=== PATIENT | female | born 1955 | race Caucasian/White ===

== ENCOUNTER 2016-10-25 13:18 | Emergency (ER) | payer BC ==
[~2016-10-25] VITALS: Ht 167.6 cm; Wt 77.2 kg
[~2016-10-25 13:18] MED LIST: BUSPAR; FLUO40CA9 PO; LEVO150T PO; TRIA1TAB3 PO; omprazole
[2016-10-25 13:27] VITALS: BP 140/86
--- NOTE | 2016-10-25 13:36 | PHYS DOC ---
General Chief Complaint: LACERATION/AVULSION Stated Complaint: THUMB LAC Time Seen by MD: 13:30 Source: patient Exam Limitations: no limitations Problems: History of Present Illness Initial Comments Pt is 61/F to ED c/o left thumb laceration. 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 Bled profusely initially, mostly resolved with direct pressure on ED arrival. Pain controlled, no numbness/tingling/ radiating symptoms. Pt unable to extend thumb at IP joint, obvious tendon disruption. Td status uncertain, possibly within past 10 years will update today. Onset: just prior to arrival Severity: severe Pain/Injury Location: left thumb Method of Injury: incised Modifying Factors: worse with jarring, worse with movement Allergies: Coded Allergies: Penicillins (Verified Allergy, Intermediate, Rash, 10/25/16) Sulfa (Sulfonamide Antibiotics) (Verified Allergy, Intermediate, Rash, ) Past Medical History Medical History: other (thyroid CA s/p thyroidectomy, GERD, depression, anxiety ) Surgical History: other (thyroidectomy) Social History Smoker: non-smoker Alcohol: none Drugs: none Review of Systems Constitutional: denies chills, denies fever, denies malaise Respiratory: denies cough, denies shortness of breath Cardiovascular: denies chest pain, denies palpitations Gastrointestinal: denies abdominal pain, denies nausea, denies vomiting Musculoskeletal: see HPI Skin: see HPI Psychiatric/Neurological: see HPI Physical Exam General Appearance: WD/WN, no apparent distress Neck: non-tender, supple Cardiovascular/Respiratory: normal peripheral pulses, no respiratory distress Wrist: normal inspection, non-tender, no evidence of injury, normal ROM Hand: laceration (dorsal aspect proximal phalanx left thumb with 1cm deep linear clean laceration no FB noted no pulsatile bleeding.), limited ROM, soft tissue tenderness Neurologic/Tendon: normal sensation, tendon function deficit (left thumb extensor) Psychiatric: alert, oriented x 3 Skin: warm/dry (L thumb as above) Laceration/Wound Repair Laceration/Wound Repair : Wound Location: upper extremity (dorsal aspect proximal phalanx left thumb) Wound's Depth, Shape: into muscle, linear Wound Length (cm): 1 Wound Explored: clean Irrigated w/ Saline (ccs): 150 Betadine Prep?: Yes (soaked in betacept initially) Anesthesia: 1% Lidocaine Volume Anesthetic (ccs): 3 Wound Debrided: minimal Wound Repaired With: sutures Suture Size/Type: 4:0, nylon Number of Sutures: 3 Sterile Dressing Applied?: Yes Splint Applied?: Yes Type of Splint Applied: metal finger splint Progress Informed consent left thumb laceration repair. Sterile technique. Analgesia with 2% lidocaine, wound edges approximated with 3 4-0 ethilon sutures. Tolerated well no complications, sterile dressing/metal finger splint applied by ED staff. NV intact after splint placed checked by me. Orders, Labs, Meds 1335: Staff requested to page hand surgeon. 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 Awaiting return call. 1414: Clarita reports that Dr Altamirano instructs wound closure/splinting, pt to f/ u with him in clinic Wednesday. She is to call [phone] tomorrow morning to schedule. Departure Time of Disposition: 15:02 Disposition: 01 HOME, SELF-CARE Diagnosis: left thumb extensor tendon rupture, thumb lacerati Condition: STABLE Patient Instructions: Tendon Injury, VIS, Tetanus, Diphtheria, and Pertussis ( Tdap) - CDC Additional Instructions: Keep covered with sterile dressing until completely healed. Keep wound dry for 48 hours. Change dressing twice daily. Rx: clindamycin (infection prevention), norco 5mg #14 Take meds with food. You will need to follow up with hand surgeon, Dr Altamirano. Call his office tomorrow morning to schedule Wednesday clinic appointment: [phone] Return to ED with new or changing symptoms. KAYLEN PEARSON DO Oct 25, 2016 13:36
[2016-10-25] MEDS ORDERED: LIDOCAINE 2% 20 ML VIAL. IJ ONE (14:30)
[2016-10-25] MEDS ORDERED: CLIN300C86 PO (15:02)
[2016-10-25] MEDS ORDERED: HYDR-971 PO (15:02)
[2016-10-25] MEDS ORDERED: CLINDAMYCIN HCL 150 MG CAPSULE PO ONE (15:30)
== END 2016-10-25 15:21 | disposition home or self-care (01) ==
LOC: ER 13:18
DX: S61.012A Laceration without foreign body of left thumb without damage to nail, initial encounter (principal); K21.9 Gastro-esophageal reflux disease without esophagitis; Z88.0 Allergy status to penicillin; Z88.2 Allergy status to sulfonamides; W45.8XXA Other foreign body or object entering through skin, initial encounter; Y93.89 Activity, other specified; Y99.8 Other external cause status; Y92.89 Other specified places as the place of occurrence of the external cause
CPT/HCPCS: 12001; 99283-25; J2001

== ENCOUNTER → 2017-03-16 | Outpatient (CLI) | payer BC ==
[~2017-03-16] MED LIST changes: +CLIN300C8 PO; +HYDR-971 PO
--- NOTE | 2017-03-16 09:59 | RAD ---
DATE: 03/16/2017 EXAM: MAMMO DELTA SCREENING BILATERAL HISTORY: Screening COMPARISON: 11/07/2014 This study was interpreted with the benefit of Computerized Aided Detection (CAD). FINDINGS: Breast Density: HETERO The breast parenchyma Is heterogeneiously dense, which could reduce sensitivity of mammography. Breast parenchyma level C. No dominant mass or suspect group calcifications is seen. There has not been a significant change in the appearance of the breasts when compared to the previous exam IMPRESSION: Benign findings BI-RADS CATEGORY: 2 BENIGN FINDING(S) RECOMMENDED FOLLOW-UP: 12M 12 MONTH FOLLOW-UP PQRS compliance statement: Patient information was entered into a reminder system with a target due date 03/16/2018 for the next mammogram. Mammography is a sensitive method for finding small breast cancers, but it does not detect them all and is not a substitute for careful clinical examination. A negative mammogram does not negate a clinically suspicious finding and should not result in delay in biopsying a clinically suspicious abnormality. "Our facility is accredited by the [employer] Mammography Program."
== END | disposition home or self-care (01) ==
LOC: MAMMO 07:59
PROVIDERS: ATTEND Internal Medicine
DX: Z12.31 Encounter for screening mammogram for malignant neoplasm of breast (principal)
CPT/HCPCS: 77063; G0202; 77067

== ENCOUNTER → 2017-10-21 | Outpatient (CLI) | payer BC ==
[2017-10-25 14:12] LABS: ALBUM 4.1 g/dL (2.9-4.4); ALPHA 1 0.3 g/dL (0.0-0.4); ALPHA 2 1.2 g/dL (0.4-1.0); BETA 1.2 g/dL (0.7-1.3); GAMMA 0.8 g/dL (0.4-1.8); PROTEIN TOTAL 7.5 g/dL (6.0-8.5); SPEP AG RATIO 1.2 (0.7-1.7)
[2017-10-26 15:11] LABS: ALPHA 1 UR 6.8 % (.); ALPHA 2 UR 18.5 % (.); BETA UR 29.3 % (.); GAMMA UR 27.4 % (.); PROTEIN 24 UR 89 mg/24 hr (30-150); PROTEIN UR 9.9 mg/dL (Not Estab.)
== END | disposition home or self-care (01) ==
LOC: LAB 10:20
PROVIDERS: ATTEND Orthopaedic Surgery Orthopaedic Surgery of the Spine
DX: R93.7 Abnormal findings on diagnostic imaging of other parts of musculoskeletal system (principal)
CPT/HCPCS: 36415; 84165; 84166

== ENCOUNTER 2019-09-21 05:10 | Emergency (ER) | payer BC ==
[~2019-09-21] VITALS: Ht 167.6 cm; Wt 66.4 kg
[~2019-09-21 05:10] MED LIST changes: +HYDR-3165 PO; -HYDR-971 PO
--- NOTE | 2019-09-21 05:20 | PHYS DOC ---
Past History Past Medical History: Cancer, CVA, Hypothyroid, Other Past Medical History Pulmonary Embolism (BUSTER HINTON MD) Past Surgical History: Other Past Surgical History Port- Veinous (BUSTER HINTON MD) Smoking: Non-smoker Alcohol Use: None Drug Use: None (BUSTER HINTON MD) Adult General Chief Complaint Chief Complaint: - Non-Verbal HPI HPI Patient is a 64 year old female who presents with hx of mental status change. Pt. reportedly not her self since discharge from on Sat. after tx for PE. Pt. was walking and verbal last night. This morning pt not verbal, or only responded with word 'What' to questions. and seemed very weak on Rt side. Pt. has hx of adenocarcinoma with no origin. (BUSTER HINTON MD) Review of Systems Review of Systems Review of systems Limited- due to patient's mental status on arrival (BUSTER HINTON MD) Family History Family History Not currently available (BUSTER HINTON MD) Current Medications Current Medications See nursing for home meds (BUSTER HINTON MD) Allergies Allergies Allergies Coded Allergies Type Severity Reaction Last Updated Verified Penicillins Allergy Intermediate Rash 10/25/16 Yes Sulfa (Sulfonamide Antibiotics) Allergy Intermediate Rash 10/25/16 Yes (BUSTER HINTON MD) Physical Exam Physical Exam Constitutional:, no acute distress, chronically ill in appearance. [] HENT: Normocephalic, atraumatic, bilateral external ears normal, oropharynx moist, no oral exudates, nose normal. [] Eyes: PERRLA, EOMI, conjunctiva normal, no discharge. [] Neck: Normal range of motion, no tenderness, supple, no stridor. [] Cardiovascular: Tachycardia Heart rate ill regular regular rhythm, no murmur []PMI to the left. Monitor shows episodes of irregular rhythm suspect A. fib with rapid ventricular response. Lungs & Thorax: Bilateral breath sounds equal apex with scattered wheezes auscultation [] Abdomen: Bowel sounds normal, soft, no tenderness, no masses, no pulsatile masses. Incontinent of urine Skin: Warm, dry, no erythema, no rash. Or turgor Back: No tenderness, no CVA tenderness. [] Extremities: No tenderness, no cyanosis, no clubbing, ROM intact, no edema. Arthritic changes Neurologic: Minimal response to request, does move Lt. arm, cannot or will not use right arm, appears to have distal sensory function to noxious stimuli, appears to have right-sided deficits. Psychologic: Affect flat (BUSTER HINTON MD) EKG EKG EKG shows a tachycardic rate of 130 ventricle beats per minute. There is some anterior lateral changes.[] Possible A. fib- vs multifocal p conduction. (BUSTER HINTON MD) Radiology/Procedures Radiology/Procedures [address] [id number] IMAGING REPORT Signed PATIENT: ERIC MCKINNON ACCOUNT: [id number] : 1955 LOCATION: ER AGE: 64 SEX: F EXAM STATUS: REG ER ORD. PHYSICIAN: BUSTER HINTON MD REASON: ALTERED MENTAL STATUS, confusion, difficulty holding still PROCEDURE: CT CODE STROKE HEAD WO CT head without contrast: Reason for examination: Altered mental status with confusion. Axial images were obtained through the brain. No contrast was administered. Exposure: One or more of the following individualized dose reduction techniques were utilized for this examination: 1. Automated exposure control 2. Adjustment of the mA and/or kV according to patient size 3. Use of iterative reconstruction technique. Ventricular systems are symmetric and not dilated. No midline shift is seen. There is no evidence of intracranial hemorrhage, acute infarct, mass or edema. There is a calcification present anteriorly adjacent to the falx consistent with a meningioma measuring approximately 12 mm in greatest dimension. There are small hypodensities consistent with small chronic lacunar infarct in the basal ganglia. No abnormalities of seen at the orbits. No abnormalities of seen at the paranasal sinuses. Mastoid air cells are clear. IMPRESSION: 12 mm calcified meningioma anteriorly in the right frontal lobe adjacent to the falx. Small chronic appearing lacunar infarcts in the basal ganglia. No acute intracranial abnormality evident. FOR INTERNAL CODING PURPOSES Critical result: Findings discussed with BUSTER HINTON at 09/21/2019 5:38 AM. RESULT CODE: (C) Electronically signed by: Monet Michel MD (09/21/2019 5:40 AM) [id number] DICTATED AND SIGNED BY: MONET MICHEL MD DATE: 09/21/19539 CC: BUSTER HINTON MD; ERIC CONNOLLY MD ~ [][place] [address] IMAGING REPORT Signed PATIENT: ERIC MCKINNON ACCOUNT: [id number] : 1955 LOCATION: ER AGE: 64 SEX: F EXAM STATUS: REG ER ORD. PHYSICIAN: BUSTER HINTON MD REASON: rhonchi > Rt, lethargic, altered mental status PROCEDURE: PORTABLE CHEST 1V Chest AP portable at 0519: Reason for examination: Rhonchi greater on the right. Lethargy and altered mental status. Port-A-Cath is present on the right. Heart and mediastinum are unremarkable. Lung soria show mild hazy density in the right lower lobe with blunting at the right costophrenic angle possibly reflecting a pleural effusion. Left lung field is clear. No acute bony abnormalities are seen. IMPRESSION: Hazy density with obscuring of the right costophrenic angle consistent with a pleural effusion. Electronically signed by: Monet Michel MD (09/21/2019 5:45 AM) [id number] DICTATED AND SIGNED BY: MONET MICHEL MD DATE: 09/21/19544 CC: BUSTER HINTON MD; ERIC CONNOLLY MD ~ (BUSTER HINTON MD) Impressions: PROCEDURE: CT ANGIOGRAPHY HEAD AND NECK CT angiography head and neck with contrast PQRS statement: CT scans at this facility use dose reduction including either automated exposure control, iterative reconstructions, and /or weight based radiation dosing via mA and kV modification when appropriate to reduce radiation dose to as low as reasonably achievable. Stenosis calculations for CT, MR, and conventional angiography are based upon measurements of the distal ICA diameter in accordance with the NASCET methodology. Stenosis calculations for carotid ultrasound studies are derived from validated velocity criteria which are known to correlate with the NASCET methodology. HISTORY: Possible cerebrovascular accident. Altered mental status. Confusion. Right-sided weakness. TECHNIQUE: CT imaging the head and neck with 3-D MIP reconstructions of the arteries with 75 mL Omnipaque 350 intravenous contrast. COMPARISON: Head CT September 21, 2019 Neck findings: There is a T1 thoracic vertebral heterogeneous sclerotic bony lesion which is indeterminate. Cervical disc disease. Cirrhotic bone lesion of the manubrium. Moderate right pleural effusion, small left pleural effusion, heterogeneous opacities at the right upper lobe. Slight dominance of the right vertebral artery. No plaque, dissection, thrombus, stenosis or occlusion the vertebral arteries. Left carotid artery demonstrates small focal calcified plaque at the bifurcation without measurable stenosis. No dissection, thrombus or occlusion. Right carotid artery demonstrates no plaque, thrombus, dissection, stenosis or occlusion. Head findings: At the left sylvian fissure one of the M2 middle cerebral arterial branches demonstrates a 2 mm outpouching coronal images 87-88 and axial images 227 to 232, this may represent a small aneurysm, although a abrupt occlusion of a takeoff of an M3 arterial branch vessel could also result in a similar finding there is no obvious occluded vessel peripheral to this and no obvious oligemia peripheral arterial branches downstream although a small branch vessel occlusion may not be visible. Ossified meningioma overlying the anterior right frontal lobe at the vertex adjacent of the falx cerebra again demonstrated. There is no obvious occlusion of the right posterior cerebral artery leading up to the age-indeterminate right occipital lobe infarct. IMPRESSION: 1. No large vessel occlusion. 2. One of the left middle cerebral artery M2 branches at the sylvian fissure demonstrates a 2 mm symmetrical outpouching with downstream abrupt cut off, while it is possible this is an aneurysm, given the morphology, this is most suspicious for an excluded M3 branch of the middle cerebral artery particularly if the patient has right-sided symptoms. 3. Moderate right and mild left pleural effusions and right upper lobe infiltrate. 4. Sclerotic bony lesions of the thorax suspicious for osteoblastic metastatic disease. 5. Right frontal meningioma again demonstrated. 6. Age-indeterminate right occipital lobe infarct and basal ganglia infarcts again demonstrated. FOR INTERNAL CODING PURPOSES Critical result: Findings discussed with DR. MARIA L ENCINAS at 09/21/2019 7:47 AM. RESULT CODE: (C) Electronically signed by: Denzel Rios MD (09/21/2019 7:49 AM) [id number] (MARIA L ENCINAS Jr. DO) Course & Med Decision Making Course & Med Decision Making Pertinent Labs and Imaging studies reviewed. (See chart for details) Labs and further CT pending at time of shift change. Patient endorsed to Dr. Encinas. He will make disposition of pt. Pt. is out of window for TPA- Impression: 1. Mental Status Change and new Rt side Deficits and Speech 2. Hx. Recent PE- Tx. at [facility]- Recent discharge 3. Meningoma Rt. Frontal [] (BUSTER HINTON MD) Course & Med Decision Making Patient care was accepted from Dr. Hinton at 6:00 AM. Upon receiving patient's care, a CT angio of the head and neck was completed. Upon radiologist reviewing findings of CT angio, findings were reviewed with family and family indicates that they would like to be transferred to [facility]. transfer Center was contacted and Dr. Vu will accept patient in transfer. (MARIA L ENCINAS Jr., DO) Dragon Disclaimer Dragon Disclaimer This electronic medical record was generated, in whole or in part, using a voice recognition dictation system. (BUSTER HINTON MD) Departure Departure: Impression: Primary Impression: CVA (cerebral vascular accident) Disposition: 02 XFER SHT-TRM HOSP Condition: GUARDED Referrals: ERIC CONNOLLY MD (PCP) Problem Qualifiers Primary Impression: CVA (cerebral vascular accident) CVA mechanism: unspecified Qualified Codes: I63.9 - Cerebral infarction, unspecified BUSTER HINTON MD Sep 21, 2019 05:20 MARIA L ENCINAS Jr., DO Sep 21, 2019 08:22
[2019-09-21] MEDS ORDERED: IV RINGERS SOLUTION,LACTATED 1,000 ML IV SCH (05:30)
--- NOTE | 2019-09-21 05:43 | RAD ---
CT head without contrast: Reason for examination: Altered mental status with confusion. Axial images were obtained through the brain. No contrast was administered. Exposure: One or more of the following individualized dose reduction techniques were utilized for this examination: 1. Automated exposure control 2. Adjustment of the mA and/or kV according to patient size 3. Use of iterative reconstruction technique. Ventricular systems are symmetric and not dilated. No midline shift is seen. There is no evidence of intracranial hemorrhage, acute infarct, mass or edema. There is a calcification present anteriorly adjacent to the falx consistent with a meningioma measuring approximately 12 mm in greatest dimension. There are small hypodensities consistent with small chronic lacunar infarct in the basal ganglia. No abnormalities of seen at the orbits. No abnormalities of seen at the paranasal sinuses. Mastoid air cells are clear. IMPRESSION: 12 mm calcified meningioma anteriorly in the right frontal lobe adjacent to the falx. Small chronic appearing lacunar infarcts in the basal ganglia. No acute intracranial abnormality evident. FOR INTERNAL CODING PURPOSES Critical result: Findings discussed with BUSTER BRUCE at 09/21/2019 5:38 AM. RESULT CODE: (C) Electronically signed by: Monet Contreras MD (09/21/2019 5:40 AM) [id number]
--- NOTE | 2019-09-21 05:47 | RAD ---
Chest AP portable at 0519: Reason for examination: Rhonchi greater on the right. Lethargy and altered mental status. Port-A-Cath is present on the right. Heart and mediastinum are unremarkable. Lung soria show mild hazy density in the right lower lobe with blunting at the right costophrenic angle possibly reflecting a pleural effusion. Left lung field is clear. No acute bony abnormalities are seen. IMPRESSION: Hazy density with obscuring of the right costophrenic angle consistent with a pleural effusion. Electronically signed by: Monet Contreras MD (09/21/2019 5:45 AM) [id number]
[2019-09-21] MEDS ORDERED: IV RINGERS SOLUTION,LACTATED 1,000 ML IV ONE (06:00)
[2019-09-21] MEDS ORDERED: ASPIRIN RECTAL 300 MG SUPP. PR ONE (06:00)
[2019-09-21] MEDS ORDERED: dilTIAZem 25 MG/5 ML VIAL IVP ONE (06:00)
--- NOTE | 2019-09-21 06:00 | EKG ---
[address] [address] Test Date: 2019-09-21 Test Time: 05:43:35 Pat Name: ERIC MCKINNON Department: Room: Gender: F Critical Care Nurse: : 1955 Requested By: BUSTER BRUCE Order Number: [id number] Reading MD: Measurements Intervals [place] Rate: 130 P: 36 [place]: 102 QRS: 37 QRSD: 76 T: 53 QT: 312 QTc: 466 Interpretive Statements SINUS TACHYCARDIA QRS(T) CONTOUR ABNORMALITY CONSIDER ANTEROLATERAL MYOCARDIAL DAMAGE POSSIBLY ABNORMAL ECG RI6.01 No previous ECG available for comparison
[2019-09-21] MEDS ORDERED: dilTIAZem VIAL 125 MG in IV NORMAL SALINE 100ML 100 ML IV PRN (06:15)
[2019-09-21 06:20] LABS: BASO % 0 % (0-3); EOS % 0 % (0-3); HEMATOCRIT 35.7 % (36.0-47.0); HEMOGLOBIN 11.1 g/dL (12.0-15.5); LYMPH # 0.3 x10^3/uL (1.0-4.8); LYMPH % 3 % (24-48); MEAN CORPUSCULAR HEMOGLOBIN 25 pg (25-35); MEAN CORPUSCULAR HGB CONC 31 g/dL (31-37); MEAN CORPUSCULAR VOLUME 79 fL (79-100); MONO # 0.7 x10^3/uL (0.0-1.1); MONO % 6 % (0-9); NEUT # 11.2 x10^3uL (1.8-7.7); NEUT % 92 % (31-73); PLATELET COUNT 90 x10^3/uL (140-400); RED BLOOD COUNT 4.51 x10^6/uL (3.50-5.40); RED CELL DISTRIBUTION WIDTH 18.1 % (11.5-14.5); WHITE BLOOD COUNT 12.2 x10^3/uL (4.0-11.0)
[2019-09-21 06:31] LABS: INFLUENZA A PATIENT NEGATIVE (NEGATIVE); INFLUENZA B PATIENT NEGATIVE (NEGATIVE)
[2019-09-21 06:34] LABS: ALBUMIN 2.1 g/dL (3.4-5.0); CALCIUM 7.3 mg/dL (8.5-10.1); CREATININE 0.7 mg/dL (0.6-1.0); DIRECT BILIRUBIN 0.4 mg/dL (0.0-0.2); GFR 84.8; TOTAL BILIRUBIN 0.7 mg/dL (0.2-1.0); TOTAL PROTEIN 5.7 g/dL (6.4-8.2)
[2019-09-21 06:37] LABS: POTASSIUM 2.8 mmol/L (3.5-5.1)
[2019-09-21] MEDS ORDERED: IOHEXOL 350 MG/ML 100 ML VIAL. IV ONE (06:45)
[2019-09-21] MEDS ORDERED: CONTRAST GIVEN MC PRN (07:00)
[2019-09-21 07:35] LABS: SEDIMENTATION RATE 80 (0-25)
--- NOTE | 2019-09-21 07:52 | RAD ---
CT angiography head and neck with contrast PQRS statement: CT scans at this facility use dose reduction including either automated exposure control, iterative reconstructions, and /or weight based radiation dosing via mA and kV modification when appropriate to reduce radiation dose to as low as reasonably achievable. Stenosis calculations for CT, MR, and conventional angiography are based upon measurements of the distal ICA diameter in accordance with the NASCET methodology. Stenosis calculations for carotid ultrasound studies are derived from validated velocity criteria which are known to correlate with the NASCET methodology. HISTORY: Possible cerebrovascular accident. Altered mental status. Confusion. Right-sided weakness. TECHNIQUE: CT imaging the head and neck with 3-D MIP reconstructions of the arteries with 75 mL Omnipaque 350 intravenous contrast. COMPARISON: Head CT September 21, 2019 Neck findings: There is a T1 thoracic vertebral heterogeneous sclerotic bony lesion which is indeterminate. Cervical disc disease. Cirrhotic bone lesion of the manubrium. Moderate right pleural effusion, small left pleural effusion, heterogeneous opacities at the right upper lobe. Slight dominance of the right vertebral artery. No plaque, dissection, thrombus, stenosis or occlusion the vertebral arteries. Left carotid artery demonstrates small focal calcified plaque at the bifurcation without measurable stenosis. No dissection, thrombus or occlusion. Right carotid artery demonstrates no plaque, thrombus, dissection, stenosis or occlusion. Head findings: At the left sylvian fissure one of the M2 middle cerebral arterial branches demonstrates a 2 mm outpouching coronal images 87-88 and axial images 227 to 232, this may represent a small aneurysm, although a abrupt occlusion of a takeoff of an M3 arterial branch vessel could also result in a similar finding there is no obvious occluded vessel peripheral to this and no obvious oligemia peripheral arterial branches downstream although a small branch vessel occlusion may not be visible. Ossified meningioma overlying the anterior right frontal lobe at the vertex adjacent of the falx cerebra again demonstrated. There is no obvious occlusion of the right posterior cerebral artery leading up to the age-indeterminate right occipital lobe infarct. IMPRESSION: 1. No large vessel occlusion. 2. One of the left middle cerebral artery M2 branches at the sylvian fissure demonstrates a 2 mm symmetrical outpouching with downstream abrupt cut off, while it is possible this is an aneurysm, given the morphology, this is most suspicious for an excluded M3 branch of the middle cerebral artery particularly if the patient has right-sided symptoms. 3. Moderate right and mild left pleural effusions and right upper lobe infiltrate. 4. Sclerotic bony lesions of the thorax suspicious for osteoblastic metastatic disease. 5. Right frontal meningioma again demonstrated. 6. Age-indeterminate right occipital lobe infarct and basal ganglia infarcts again demonstrated. FOR INTERNAL CODING PURPOSES Critical result: Findings discussed with DR. MARIA L COPELAND at 09/21/2019 7:47 AM. RESULT CODE: (C) Electronically signed by: Denzel Rios MD (09/21/2019 7:49 AM) [id number]
[2019-09-21 08:44] LABS: AMPHETAMINE/METHAMPHETAMINE NEG (NEG); BARBITURATES NEG (NEG); BENZODIAZEPINES NEG (NEG); CANNABINOIDS NEG (NEG); COCAINE NEG (NEG); METHADONE NEG (NEG); OPIATES POS (NEG); PHENCYCLIDINE NEG (NEG)
[2019-09-21 09:01] LABS: BILIRUBIN,URINE NEG (NEG); CLARITY,URINE CLEAR; COLOR,URINE STRAW; GLUCOSE,URINE NEG (NEG)
[2019-09-21 09:02] LABS: BACTERIA,URINE 0 /HPF (0-FEW); NITRITE,URINE NEG (NEG); RBC,URINE OCC /HPF (0-2); SQUAMOUS EPITHELIAL CELL,UR FEW /LPF; UROBILINOGEN,URINE 0.2 mg/dL (0.2 mg/dL); WBC,URINE OCC /HPF (0-4)
[2019-09-21 09:24] VITALS: BP 140/94
== END 2019-09-21 09:50 | disposition short-term general hospital (02) ==
LOC: ER 05:10
DX: I63.9 Cerebral infarction, unspecified (principal); R47.81 Slurred speech; G81.91 Hemiplegia, unspecified affecting right dominant side; R41.82 Altered mental status, unspecified; G93.89 Other specified disorders of brain; Z86.711 Personal history of pulmonary embolism; E03.9 Hypothyroidism, unspecified; Z88.0 Allergy status to penicillin; Z88.2 Allergy status to sulfonamides
CPT/HCPCS: 36415; 51702; 70450; 70496; 70498; 71045; 80048; 80076; 80307; 81001; 82550; 83605; 83690; 83735; 83880; 84443; 84484; 85025; 85379; 85610; 85651; 85730; 87040; 87804; 93005; 96361; 96374; 99285; J7120; Q9967